=== PATIENT | male | born 1960 | race Hispanic/Latino ===

== ENCOUNTER 2022-02-15 21:15 | Emergency (ER) | payer SELFPAY ==
[~2022-02-15] VITALS: Ht 170.2 cm; Wt 81.0 kg
[2022-02-15] MEDS ORDERED: CYCLOBENZAPRINE10 MG PO (23:54)
--- NOTE | 2022-02-18 12:55 | EKG ---
[facility] [address] [place], [place] [address] Signed Normal sinus rhythm Normal ECG No previous ECGs available Confirmed by JACQUI HAMMOND MD ([id number]) on 02/18/2022 12:55:10 PM Electronically Signed By: JACQUI HAMMOND MD 02/18/22 1255 PATIENT NAME: NADIA PORTER Electrocardiogram DATE OF : 56 PHYSICIAN: JACQUI HAMMOND MD REPORT #: [id number] REPORT IS CONFIDENTIAL AND NOT TO BE RELEASED WITHOUT AUTHORIZATION
== END 2022-02-16 01:00 | disposition home or self-care (01) ==
LOC: ED 21:15
DX: R07.89 Other chest pain (principal); R22.40 Localized swelling, mass and lump, unspecified lower limb; E11.9 Type 2 diabetes mellitus without complications
CPT/HCPCS: 36415; 71045; 80053; 83690; 83735; 83880; 84484; 85025; 85379; 93005; 93010; 96374; 99285-25; J2270

== ENCOUNTER 2024-10-23 09:09 | Emergency (ER) | payer OTHER ==
[~2024-10-23] VITALS: Ht 170.2 cm; Wt 74.0 kg
[~2024-10-23 09:09] MED LIST: CYCLOBENZAPRINE10 MG PO
[2024-10-23] MEDS ORDERED: CIPROFLOXACIN500 MG PO (09:21)
[2024-10-23] MEDS ORDERED: LANTUS SOL100 UNIT/1 SUB-Q (09:21)
[2024-10-23] MEDS ORDERED: METFORMIN HCL1000 MG PO (09:21)
[2024-10-23] MEDS ORDERED: FREESTYLE LANC1 EACH MISC (09:21)
[2024-10-23] MEDS ORDERED: PEG3350510 GM PO (09:21)
[2024-10-23] MEDS ORDERED: HYDROmorphone HCL 1 MG/ML SYR IV PRN (09:30)
[2024-10-23] MEDS ORDERED: SODIUM CHLORIDE 0.9% 1,000 ML IV ONE (09:30)
[2024-10-23 09:40] LABS: BASOPHILS 0.5 % (0-2); EOSINOPHILS 2.7 % (0-6); HEMATOCRIT 45.3 % (35.0-50.0); HEMOGLOBIN 15.3 g/dL (12.0-18.0); LYMPHOCYTES 29.6 % (24-44); MCH 27.8 (27-36); MCHC 33.8 g/dl (30-36); MCV 82.3 fl (81-99); MONOCYTES 11.8 % (0-12); NEUTROPHILS 55.4 % (39-80); PLATELET COUNT 278 K/uL (140-440); RBC 5.51 M/ul (4.3-5.7); RDW 13.8 (10.5-15.0)
[2024-10-23 09:55] LABS: ALBUMIN 3.5 g/dL (3.4-5.0); ALBUMIN/GLOBULIN RATIO 1.13 (1.1-2.4); ANION GAP 13.6 (7-21); BILIRUBIN, TOTAL 0.4 mg/dL (0.2-1.0); BUN/CREATININE RATIO 12.65 (6.0-28.6); CALCIUM 8.6 mg/dL (8.5-10.1); CREATININE, SERUM 0.79 mg/dL (0.70-1.30); POTASSIUM 3.6 mmol/L (3.5-5.1); PROTEIN, TOTAL 6.6 g/dL (6.4-8.2)
[2024-10-23 10:39] LABS: BILIRUBIN, URINE NEGATIVE (negative); BLOOD/HGB, URINE MODERATE (Negative); KETONE, URINE NEGATIVE (Negative); LEUK ESTERASE, URINE NEGATIVE (negative); NITRITE, URINE NEGATIVE (negative)
[2024-10-23 10:45] LABS: EPITHELIAL CELLS, URINE SQUAMOUS 1+ /lpf (0-1+)
[2024-10-23 10:46] LABS: BACTERIA, URINE NONE SEEN /hpf (negative); CASTS, URINE NONE SEEN \\lpf; COLLECTION TYPE, URINE CLEAN CATCH; CRYSTALS, URINE NONE SEEN (0-1+); REFLEX CULTURE, URINE No (No)
[2024-10-23] MEDS ORDERED: SOD PHOSPHATE/SOD BIPHOSPHATE 132 ML BTL PR ONE (11:30)
[2024-10-23] MEDS ORDERED: MAGNESIUM CITRATE 300 ML BTL PO ONE (13:30)
[2024-10-23 13:42] VITALS: BP 136/78
== END 2024-10-23 13:42 | disposition home or self-care (01) ==
LOC: ED 09:09
PROVIDERS: Emergency Medicine
DX: K62.89 Other specified diseases of anus and rectum (principal); N32.89 Other specified disorders of bladder; K59.00 Constipation, unspecified; E11.9 Type 2 diabetes mellitus without complications; Z79.84 Long term (current) use of oral hypoglycemic drugs; Z79.899 Other long term (current) drug therapy
CPT/HCPCS: 36415; 74177; 80053; 81001; 83690; 85025; 96376; 99284-25; J1171; J7030; Q9967

== ENCOUNTER 2024-11-21 10:17 | Emergency (ER) | payer OTHER ==
[~2024-11-21] VITALS: Ht 170.2 cm; Wt 75.6 kg
[~2024-11-21 10:17] MED LIST changes: +CIPROFLOXACIN500 MG PO; +FREESTYLE LANC1 EACH MISC; +LANTUS SOL100 UNIT/1 SUB-Q; +METFORMIN HCL1000 MG PO; +PEG3350510 GM PO
--- OUTSIDE RECORDS SUMMARY | 2024-11-21 10:20 | XMS ---
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 PHONE: [phone] CROW [facility] - [facility] Current PHONE: Unknown [facility]: [facility] ([facility]) PHONE: [phone] Kristofer has no Care Guidelines for this patient. Eb VISIT COUNT (12 MO.) 5 [facility] 2 NICOLA Quiroz TOTAL 7 NOTE: Visits indicate total known visits. ED/UCC VISIT TRACKING (12 MO.) 11/21/2024 10:18 [facility] TYPE: Emergency COMPLAINT: - RECTAL PAIN 11/12/2024 09:20 [facility] TYPE: Emergency DIAGNOSES: - Other specified diseases of anus and rectum - Retention of urine, unspecified - Urinary tract infection, site not specified - Abdominal Pain - Back Pain 11/05/2024 06:02 [facility] TYPE: Emergency DIAGNOSES: - Constipation, unspecified - Generalized abdominal pain - Other specified noninfective gastroenteritis and colitis - Personal history of urinary (tract) infections - Retention of urine, unspecified - Unspecified abdominal pain - Constipation - Urinary Complaint 11/02/2024 13:40 [facility] TYPE: Emergency DIAGNOSES: - Urinary Complaint 10/26/2024 19:46 [facility] TYPE: Emergency DIAGNOSES: - Acute cystitis with hematuria - Adverse effect of other opioids, initial encounter - Drug induced constipation - Elevated blood-pressure reading, without diagnosis of hypertension - Opioid abuse, uncomplicated - Other specified disorders of bladder - Constipation 10/23/2024 09:09 [facility] [place] TYPE: Emergency COMPLAINT: - ABDOMINAL PAIN DIAGNOSES: - Constipation, unspecified - [facility] (current) use of oral hypoglycemic drugs - Lower abdominal pain, unspecified - Other superintendent marine [employer] (current) drug therapy - Other specified diseases of anus and rectum - Other specified disorders of bladder - Type 2 diabetes mellitus without complications 07/09/2024 10:16 [facility] TYPE: Emergency DIAGNOSES: - Hemorrhage of anus and rectum - Non-ST elevation (NSTEMI) myocardial infarction - Chest Pain - Chest pain,SOB, numb hands INPATIENT VISIT TRACKING (12 MO.) 07/09/2024 10:16 [facility] TYPE: Internal Medicine DIAGNOSES: - Hemorrhage of anus and rectum - Non-ST elevation (NSTEMI) myocardial infarction - Presence of aortocoronary bypass graft [email or web address]
[2024-11-21] MEDS ORDERED: ondansetron HCL 4 MG/2 ML VIAL IV PRN (10:45)
[2024-11-21] MEDS ORDERED: SODIUM CHLORIDE 0.9% 1,000 ML IV ONE (10:45)
[2024-11-21] MEDS ORDERED: HYDROmorphone HCL 1 MG/ML SYR IV ONE ×2 (10:45→13:30)
[2024-11-21 10:56] LABS: BASOPHILS 0.9 % (0-2); EOSINOPHILS 4.1 % (0-6); HEMATOCRIT 42.9 % (35.0-50.0); HEMOGLOBIN 14.5 g/dL (12.0-18.0); LYMPHOCYTES 26.3 % (24-44); MCH 27.6 (27-36); MCHC 33.8 g/dl (30-36); MCV 81.6 fl (81-99); MONOCYTES 12.7 % (0-12); PLATELET COUNT 269 K/uL (140-440); RBC 5.25 M/ul (4.3-5.7)
[2024-11-21 11:16] LABS: ALBUMIN 3.5 g/dL (3.4-5.0); ALBUMIN/GLOBULIN RATIO 1.21 (1.1-2.4); ANION GAP 10.6 (7-21); BILIRUBIN, TOTAL 0.4 mg/dL (0.2-1.0); BUN/CREATININE RATIO 9.63 (6.0-28.6); CALCIUM 8.4 mg/dL (8.5-10.1); CREATININE, SERUM 0.83 mg/dL (0.70-1.30); POTASSIUM 3.6 mmol/L (3.5-5.1); PROTEIN, TOTAL 6.4 g/dL (6.4-8.2)
[2024-11-21] MEDS ORDERED: ROWASA4 GM/60 ML PR (13:07)
[2024-11-21] MEDS ORDERED: HYDROCODON-ACE1 EA10 PO (13:20)
[2024-11-21 13:50] VITALS: BP 123/72
--- NOTE | 2024-11-21 17:50 | EKG ---
[facility] [address], [place] [address] Signed Normal sinus rhythm Normal ECG Confirmed by Samir White DO ([id number]) on 11/21/2024 5:50:08 PM Electronically Signed By: SAMIR WHITE DO 11/21/24 175 PATIENT NAME: CHARLOTTE NADIA FERRO Electrocardiogram DATE OF : 56 PHYSICIAN: SAMIR WHITE DO REPORT #: [id number] REPORT IS CONFIDENTIAL AND NOT TO BE RELEASED WITHOUT AUTHORIZATION
== END 2024-11-21 13:35 | disposition home or self-care (01) ==
LOC: ED 10:17
PROVIDERS: Emergency Medicine
DX: K62.7 Radiation proctitis (principal); C67.9 Malignant neoplasm of bladder, unspecified; E11.9 Type 2 diabetes mellitus without complications; Z95.1 Presence of aortocoronary bypass graft; Z96.0 Presence of urogenital implants; Z79.4 Long term (current) use of insulin; Z79.84 Long term (current) use of oral hypoglycemic drugs; Z79.899 Other long term (current) drug therapy
CPT/HCPCS: 36415; 74177; 80053; 83690; 85025; 93005; 93010; 96375; 96376; 99284-25; J1171; J2405; J7030; Q9967

== ENCOUNTER 2025-01-05 05:30 | Day surgery (SDC) | payer OTHER ==
[2024-12-29 13:46] VITALS: BP 124/86
--- NOTE | 2024-12-30 08:46 | NUR ---
PRE OP LAB, EKG AND XRAY REPORTS PRINTED FOR CHART. ABNORMAL UA RESULTS NOTED. RESULTS FAXED TO DR TIRADO OFFICE. CLINIC NOTES REVIEWED. PT WAS TO START CIPRO ON 12/20. TAJ HELM PHONED PT , SIMON TO ENSURE PRE OP INSTRUCTIONS WERE UNDERSTOOD AND ANSWER ANY QUESTIONS. ALSO ASKED IF PT HAD OBTAINED AND TAKEN PRESCRIBED ANTIBIOTIC. TOLD RN THAT HE HAD NOT. INSTRUCTED TO OBTAIN AND START ANTIBIOTICS PRESCRIBED TODAY. AGREED TO DO SO.
[~2025-01-05] VITALS: Ht 170.2 cm; Wt 68.0 kg
[2025-01-05] VITALS (11 sets, daily range): BP systolic 114–172; BP diastolic 64–87
[~2025-01-05 05:30] MED LIST changes: +COLACE100 MG PO; +HYDROCODON-ACE1 EA10 PO; +LACTATED RINGER'S 1,000 ML IV SCH; +OXYBUTYNIN CHLO10 MG PO; +ROWASA4 GM/60 ML PR; +SENNA LAXATIVE8.6 MG PO
[2025-01-05] MEDS ORDERED: GENTAMICIN PHARMACY TO DOSE IV ONE (06:15)
--- NOTE | 2025-01-05 06:16 | NUR ---
PT REPORTS STARTED RX FOR NITROFURANTOIN LAST NIGHT AFTER PICKING IT UP FROM PHARMACY. DR. TIRADO NOTIFIED OF DELAYED ABX START. THIS RN READ C&S RESULTS TO DR. TIRADO FROM UA SPECIMEN COLLECTED EARLIER THIS MONTH. VERBAL ORDER RECEIVED FROM DR. TIRADO FOR 1 X DOSE OF GENTAMICIN ON-CALL TO OR. PHARMACY TO DOSE PER PROTOCOL. ORDER ENTERED INTO [employer].
[2025-01-05] MEDS ORDERED: ROSUVASTATIN CA20 MG PO (06:34)
[2025-01-05] MEDS ORDERED: NITROFURANTOIN100 M1 PO (06:34)
[2025-01-05] MEDS ORDERED: IBLOOD GLUCOSE TEST STRIP 1 EA TEST VI PRN (07:00)
[2025-01-05] MEDS ORDERED: GENTAMICIN SULFATE IV SCH ×2 (07:00)
[2025-01-05] MEDS ORDERED: DEXTROSE 5% IV SCH (07:00)
[2025-01-05] MEDS ORDERED: LIDOCAINE HCL 1% 5 ML SDV INJ ONE (07:00)
[2025-01-05] MEDS ORDERED: mitoMYcin 40 MG/20 ML VIAL BLADIN SCH (07:00)
[2025-01-05] MEDS ORDERED: CEFAZOLIN SODIUM 2 GM/20 ML SYR IV SCH (07:00)
[2025-01-05] MEDS ORDERED: SODIUM CHLORIDE 0.9% IV SCH (07:00)
--- NOTE | 2025-01-05 07:10 | NUR ---
AUDIO ENTRY WRITER SERVICE USED TO COMMINCATE WITH PT DURING CHECK IN PROCESS/ASSESSMENT. #[id number]. PTS KAYLIN ZUNIGA ALSO PRESENT.
--- NOTE | 2025-01-05 07:25 | NUR ---
VERBAL ORDER RECEIVED FROM DR. TIRADO TO [facility]. ORDER ALREADY APPEARS DC[facility]D IN [facility]. MED RETURNED TO PHARMACY.
[2025-01-05] MEDS ORDERED: HYOSCYAMINE SULFATE 0.375 MG TAB.ER.12H PO PRN (07:30)
[2025-01-05] MEDS ORDERED: MORPHINE SULFATE 15 MG TABCR PO PRN (07:30)
[2025-01-05] MEDS ORDERED: OXYCODONE/APAP 5/325 TAB PO PRN ×2 (07:30→15:30)
[2025-01-05] MEDS ORDERED: HYDROmorphone HCL 1 MG/ML SYR IV PRN ×3 (07:30→15:30)
[2025-01-05] MEDS ORDERED: ondansetron HCL 4 MG/2 ML VIAL IV PRN ×3 (07:30→15:30)
[2025-01-05] MEDS ORDERED: LIDOCAINE HCL 2% 5 ML SDV ONE (07:32)
[2025-01-05] MEDS ORDERED: ondansetron HCL 4 MG/2 ML VIAL ONE (07:32)
[2025-01-05] MEDS ORDERED: DEXAMETHASONE SOD PHOS 4 MG/ML VIAL ONE (07:32)
[2025-01-05] MEDS ORDERED: propofoL 200 MG/20 ML VIAL ONE (07:32)
[2025-01-05] MEDS ORDERED: fentaNYL citrate 100 MCG/2 ML VIAL ONE ×2 (07:32→08:34)
[2025-01-05] MEDS ORDERED: LABETALOL HCL 20 MG/4 ML VIAL ONE (08:53)
[2025-01-05] MEDS ORDERED: iopamidoL 30 ML VIAL ONE (08:59)
[2025-01-05] MEDS ORDERED: KETOROLAC TROMETHAMINE 30 MG/ML VIAL ONE (09:17)
[2025-01-05] MEDS ORDERED: ROCURONIUM BROMIDE 50 MG/5 ML SYR ONE (09:21)
[2025-01-05] MEDS ORDERED: SUGAMMADEX SODIUM 200 MG/2 ML ML ONE (09:48)
[2025-01-05] MEDS ORDERED: SEVOFLURANE 250 ML BTL INH ONE (10:45)
--- NOTE | 2025-01-05 11:44 | NUR ---
01/05/25 1144 AnthonySilvia Michele 1019- PT PRESENTS TO PACU, SEMI PORTILLO POSITION, NON REACTIVE TO STIMULUS. OPA IN PLACE, CHIN LIFT NEEDED TO MAINTAIN AIRWAY, O2 AT 8L PER MASK, BREATHING EVEN AND NON LABORED. LR INFUSING TO LFA IV. ABD SOFT, NON DISTENDED. CHACON CATHETER IN PLACE, PLUGGED AT THIS TIME. ALL MONITORS IN PLACE. 1030- PT ROLLED TO RIGHT SIDE WITH ASSISTANCE OF PLANT AND INSTRUMENT ENGINEER. OPA REMAINS IN PLACE, CHIN LIFT NO LONGER NEEDED. LR TKO TO LFA IV. PT REMAINS NON REACTIVE, PILLOWS IN PLACE TO KEEP ON SIDE. 1034- PT RAISES EYEBROWS BUT KEEPS EYES CLOSED. OPA REMOVED, O2 REMAINS IN PLACE. STRAW HAT MACHINE OPERATOR COMPUTER TURNED ON AND CYMRO SERVICES REQUESTED. 1041- PT MOVED TO ROOM AIR, NO STRAW HAT MACHINE OPERATOR ON THE LINE YET AT THIS TIME. 1050- PT UNDERSTANDS TO ROLL TO LEFT SIDE, ASSISTED AT THIS TIME. CONTINUE TO MONITOR, PT REACHING FOR CATHETER AND UNDERSTANDS NOT TO PULL. AWAITING INTERPRETING SERVICES STILL AT THIS TIME. 1058- PT APPEARS MORE UNCOMFORTABLE, CYMRO SPEAKING RN REQUESTED TO COME SPEAK TO PT DUE TO STRAW HAT MACHINE OPERATOR SERVICES STILL NOT ON THE LINE. EXPLAINED CHACON CATHETER AND MYTOMYCIN IN BLADDER. PT DENIES PAIN OTHER THAN FEELING THE NEED TO VOID. EXPLAINED TIME LINE TO PT, DENIES NAUSEA. 1105- PT REPORTED HE NEEDED TO URINATE, AWARE OF TIMELINE AT THIS TIME. REPORT TO CAITIE VANG AT BEDSIDE, CARE OF PT TURNED OVER AT THIS TIME. 1110- RETURNED WITH STRAW HAT MACHINE OPERATOR COMPUTER AND PT WRITHING IN BED, CYMRO SPEAKING RN JOYA BROUGHT BACK TO ROOM. THIS RN TO OR TO DISCUSS WITH DR TIRADO, ORDERS TO GIVE MEDICATION FOR BLADDER SPASMS AND DRAIN CATHETER, RELAYED TO CAITIE VANG.
[2025-01-05] MEDS ORDERED: OXYCODONE HCL5 MG PO (12:14)
[2025-01-05] MEDS ORDERED: MEPERIDINE HCL 25 MG/1 ML VIAL IV PRN (12:45)
[2025-01-05] MEDS ORDERED: fentaNYL citrate 50 MCG/ML SDV IV PRN (12:45)
[2025-01-05] MEDS ORDERED: NALOXONE HCL 0.4 MG SYR IV PRN (12:45)
[2025-01-05] MEDS ORDERED: LIDOCAINE 2% VISCOUS 6 ML SYR ONE (12:56)
[2025-01-05] MEDS ORDERED: LIDOCAINE 2% VISCOUS 6 ML SYR TOP ONE (13:30)
[2025-01-05] MEDS ORDERED: TRANEXAMIC ACID IN NACL,ISO-OS 1,000 MG/100 ML PIGGYBACK IV ONE ×2 (13:30→16:15)
[2025-01-05] MEDS ORDERED: LACTATED RINGER'S 1,000 ML IV SCH (15:30)
[2025-01-05] MEDS ORDERED: diphenhydrAMINE HCL 25 MG CAP PO PRN (15:30)
[2025-01-05] MEDS ORDERED: IBLOOD GLUCOSE TEST STRIP 1 EA TEST XX PRN (15:45)
[2025-01-05] MEDS ORDERED: GLUCAGON,HUMAN RECOMBINANT 1 MG/ML VIAL SUB-Q PRN (15:45)
[2025-01-05] MEDS ORDERED: DEXTROSE 5% 1,000 ML IV PRN (15:45)
[2025-01-05] MEDS ORDERED: DEXTROSE 50% 50 ML SYR IV PRN ×2 (15:45)
[2025-01-05] MEDS ORDERED: OXYCODONE/APAP 5/325 TAB PO ONE (17:00)
[2025-01-05] MEDS ORDERED: Insulin Regular, Human 100 UNIT/ML ML SUB-Q SCH (17:00)
[2025-01-05] MEDS ORDERED: IBLOOD GLUCOSE TEST STRIP 1 EA TEST XX SCH (17:00)
[2025-01-05 18:21] LABS: BASOPHILS 0.1 % (0.2-1.2); EOSINOPHILS 0.1 % (0.8-7.0); HEMATOCRIT 38.6 % (40.1-51.0); HEMOGLOBIN 12.8 g/dL (13.7-17.5); MCHC 33.2 g/dL (32.3-36.5); MCV 87.3 fL (79.0-92.2); MONOCYTES 4.5 % (5.3-12.2); PLATELET COUNT 295 K/uL (163-337); RBC 4.42 M/uL (4.63-6.08)
--- NOTE | 2025-01-05 18:41 | NUR ---
CBI CHACON EMPTIED FOR 3,650ML OF RED TINGED FLUID. PATIENT RESTING IN BED WITH EYES CLOSED, RR EVEN AND UNLABORED. PATIENT HAS VISITOR ON COUCH IN ROOM.
--- NOTE | 2025-01-05 18:41 | NUR ---
HOSPITALIST UPDATED AFTER PRIMARY RN PHONE CONVERSATION WITH DR. SANCHEZ. TELEPHONE ORDER TO INPUT CBC RECHECK AT 0700. NO OTHER ORDERS FROM HOSPITALIST AT THIS TIME.
--- NOTE | 2025-01-05 18:42 | NUR ---
Pt arrived to room at 1730 hours. Verbal report received at bedside from TAJ Alatorre. 2 RN skin assessment done. CBI with clots, irrigated and flow resumed. Cath bag started at 0, 750 left in bags hanging. Pt is thai speaking, at bedside speaks South Sudanese. Pt denies pain at this time. Ector box provided. Pt and pt's oriented to call light and room, side rails up x4, call light in reach.
--- NOTE | 2025-01-05 18:43 | NUR ---
PC to Dr. Mendoza to advise her that CT results are available. VO received from her to stop CBI and flush catheter well to attempt to dislodge the clot viewed on CT, then resume CBI and do not attempt to wean until later tonight. She also gave a VO to make the pt NPO at midnight in the event she needs to take him back to surgery to cauterize. She also stated he can be OOB to chair only.
--- NOTE | 2025-01-05 19:05 | NUR ---
REPORT RECEIVED FROM AMILCAR VANG. pt RESTING IN THE BED. TULIO IN RM TO ASSIST WITH CHACON BAG. DUE TO pt BEING ON CHEMO. pt DENIES ANY OTHER NEEDS AT THIS TIME. CALL LIGHT WITHIN REACH.
--- NOTE | 2025-01-05 19:30 | NUR ---
When pt arrived to the floor, the cath bag was empty and there was approximately 750ml left between bags 5 and 6 of irrigant. Pt cath was flushed with 200ml NS. Cath bag emptied of 1800ml at 1800, and 2 full bags hung. Cath bag emptied around 1830 hours by TAJ Brown, of 3650ml. Bags number 7 and 8 empty and changed at 1900 hours, and cath bag emptied of 1850ml, bags number 9 and 10 running at this time. Cath flushed with 200ml NS, no clots noted, urine bright red. At 1930 hours, cath bag emptied of 3000ml.
--- NOTE | 2025-01-05 19:37 | NUR ---
REPORT OBTAINED FROM AMILCAR VANG/ UPDATES TO BE GIVEN TO PRIMARY NOC ATJ ATKINS. PT AWAKE, ON ROOM AIR, CARES EXPLAINED IN TOGOLESE BY THIS RN. STATED UNDERSTANDING. IVF INFUSING LA W/O PROBLEMS. CBI INFUSING. F/C DRAINAGE GOODWIN RED. NO C/O PAIN.
--- NOTE | 2025-01-05 19:48 | NUR ---
1105- PT ARRIVED TO ON RA, AAO PER PTS BASELINE. PT LAYING ON L SIDE. PT NOTED TO BE GRIMACING AND MOANING. REPORT RECEIVED FROM DIVE MASTER. VISUALIZED CHACON CATH INSERTION SITE W/DIVE MASTER. NOTED RED TINGED URINE LEAKING AROUND CATHETER ONTO BED. PT REPORTING 10/10 PAIN AND ROCKING AND THRASHING. VS TAKEN. IV SITE NOTED TO BE SL'D UPON ARRIVAL BACK TO . PT DENIES NAUSEA WHEN ASKED. 1110-PT ASSISTED IN ROTATING TO HIS STOMACH FOR FINAL ROTATION W/MITOMYCIN. PT TO REMAIN IN THIS POSITION FOR 20 MINS AND THEN BLADDER MAY BE DRAINED AT 1130. HOWEVER PT THRASHING ABOUT IN BED. ATTEMPTS TO CALM ARE INEFFECTIVE. RN DANIAL WENT AND REPORTED THE ABOVE TO DR. TIRADO AND WITH INSTRUCTIONS FOR THIS RN TO GO AHEAD AND DRAIN BLADDER NOW. ALSO INSTRUCTIONS TO GIVE MORPHINE AND HYCOSAMINE FOR PAIN SPASMS IF NEEDED. ORDERS ALREADY IN EMAR FOR THESE. 1115-CHACON DRAINAGE SYSTEM ATTACHED TO DRAIN MITOMYCIN PER POLICY. NOTED ONLY A FEW DROPS IN DRAINAGE TUBING. VERIFIED NOTHING KINKING CATHETER OR CHACON DRAINAGE TUBING. CHACON BAG IS TO GRAVITY. PT REPORTING 10/10 PAIN AND ROCKING, YELLING, AND MOANING. VISUALIZED CHACON CATH AND CAN SEE SHADOWING AREAS IN CATH THAT APPEAR LIKE BLOOD CLOTS CLOGGING CATH. 1119-CALLED INTO OR TO SPEAK WITH DR. TIRADO. DR. TIRADO ON ANOTHER CALL. INFORMED STAFF MEMBER ADRIANE OF ISSUES AND NEED TO SPEAK WITH DR. TIRADO. 1121-RECEIVED CALL BACK FROM DR. TIRADO WITH INSTRUCTIONS TO IRRIGATE BLADDER WITH NS. SUPPLIES COLLECTED. 1130-CHACON CATH IRRIGATED WITH 300 CC NS X 2. SEVERAL LARGE AND SMALL CLOTS DISLODGED AND DRAINED. APPROX 550ML OF SANGUINEOUS URINE/MITOMYCIN DRAINED INTO CHACON DRAINAGE BAG. DISPOSED OF MITOMYCIN/URINE IN DRAINAGE BAG PER POLICY. NEW CHACON DRAINAGE BAG ATTACHED AND DRAINING TO GRAVITY. CATH SECURE PLACED. PTS GOWN AND BED LINENS CHANGED. ADDITIONAL WARM BLANKET PROVIDED. RAMONA VANG ASSISTED THIS RN WITH LINEN CHANGE. 1150-PT REPORTING PAIN RESOLVED WITH RESOLUTION OF OBSTRUCTED CATH. PT RATES PAIN 0/10 AND CONT TO DENY N/V. PTS SON ARRIVED AND AT BEDSIDE WITH VERN. FAMILY UPDATED ON PT. PT PROVIDED WITH PUDDING AND ICE WATER. BED IN LOW POSITION, WHEELS LOCKED, BILAT RAILS IN PLACE FOR SAFETY, AND CALL LIGHT WITHIN PT REACH. ALL QUESTIONS ANSWERED. 1205-INTO ROOM FOR ROUTINE REASSESSMENT. PTS SON AND GRANDAUGHTER REMAIN AT BEDSIDE. PT CONT TO DENY PAIN OR NAUSEA. VS TAKEN. IV SITE ASSESSED AND REMAINS SL'D AT THIS TIME. CATH INSERTION SITE VISUALIZED AND NO LEAKING OR DRAINAGE NOTED AROUND CATHETER. PT ATE ALL OF HIS PUDDING AND DRANK HIS ICE WATER. ICE WATER REFILLED. FAMILY ASKING WHEN PT CAN GO HOME. EXPLAINED NEED TO MONITOR URINE OUTPUT AND BLEEDING TO ENSURE RESOLVED BEFORE GOING HOME. EXPLAINED DR. TIRADO WOULD ALSO LIKE TO CHECK ON PT AGAIN WELL. FAMILY AND PT VERBALIZED UNDERSTANDING WITH "OK" AND NODDING OF HEAD UP AND DOWN. 1210-INTO PTS ROOM FOR DC EDUCATION. PT PROVIDED HANDOUT ON SAFE HANDLING OF URINE S/P MITOMYCIN INSTILLATION. UNABLE TO LOCATE BURUNDIAN COPY, HOWEVER EDUCATIONAL HANDOUTS RELATING TO PROCEDURE, MITOMYCIN, URETERAL STENT INSERTION, CONSTIPATION, PAIN MEDS, GENERAL ANESTHESIA, AND CHACON CATH HOME CARE AND MANAGEMENT PROVIDED FOR PT IN BURUNDIAN. BURUNDIAN SPEAKING TAJ HINSON TRANSLATED ALL WRITTEN DC EDUCATION VERBALLY FOR PT AND HIS FAMILY AND ANSWERED ALL QUESTIONS. PT AND FAMILY REPORT UNDERSTANDING. DR. TIRADO OFFICE TO CONTACT PT TO SCHEDULED 1 WEEK VOIDING TRIAL/CATH REMOVAL APPT AND 2-3 WEEK BACK TO DS FOR STENT REMOVAL. PT AND FAMILY INFORMED OF THIS. 1245-CALL LIGHT ANSWERED AND PT NOTED TO BE MOANING AND THRASHING ABOUT IN BED. NOTED CHACON NO LONGER DRAINING AND APPEARS OCCLUDED AGAIN. ENSURED NO KINKING OF CATH OR DRAINAGE TUBING. CHACON BAG TO GRAVITY. WHAT APPEARS TO BE COAGULATED BLOOD NOTED WHERE END OF CATHETER CONNECTS TO CHACON DRAINAGE TUBING. 1250-DR. TIRADO HEARD OUTSIDE OF ROOM AND ENTERED TO SEE PT AND ISSUE MENTIONED ABOVE. VERBAL INSTRUCTIONS FROM DR. TIRADO TO REPLACE CURRENT CATH WITH 24 FR, 3 WAY CATH. BALLOON TO HAVE 20 CC OF NS INSTILLED. EXISTING CATH BALLOON DEFLATED WITH 10 ML OF FLUID REMOVED. CATH REMOVED AND APPROX 12 INCH LONG CLOT ALSO REMOVED WITH CATHETER. CLOT SLIGHTLY SMALLER IN DIAMETER THAN A PENCIL. VERBAL ORDER RECEIVED FOR UROJET PER RAMONA VANG. RAMONA RN REPORTS ENTERING ORDER INTO [employer] AND MEDICATION WAS PULLED FROM [employer] AND GIVEN TO DR. TIRADO. DR. TIRADO INSTRUCTED THIS RN TO ADMINISTER TOPICALLY THROUGH URETHRA FOR PAIN AND LUBRICATION PURPOSES AFTER IODINE SWABS X 3 USED TO CLEAN AROUND URETHRA. DR. TIRADO PLACED NEW 24 FR, 3 WAY CATH AND INSTILLED 20CC NS INTO BALLOON. NOTED BLOOD TINGED URINE W/SEVERAL CLOTS OF VARIOUS SIZES DRAINED WITH PLACEMENT OF CATH. NEW CBI CHACON DRAIANGE BAG ATTACHED. DR. TIRADO WITH IRRIGATION OF CATH AGAIN AFTER PLACEMENT. MORE SMALL CLOTS DRAINED. CHACON BAG TO GRAVITY AND CATH SECUREMENT DEVICE IN USE. 1310-DR. TIRADO WITH VERBAL ORDER TO GIVEN 1 GRAM TXA IV AND MAY START CBI IF BLEEDING PERSISTS AND CLOTS CONTINUE TO REOCCUR. TXA ORDER ENTERED INTO [employer]. 1315-ROUTINE REASSESSMENT COMPLETED. PT REPORTING PAIN IN BLADDER AND URETHRA AND RATES PAIN 5/10. PT ASKED IF HE WOULD LIEK PAIN MEDICATION AND REPLIED "YES" AFTER SON TRANSLATTED QUESTION FOR THIS RN. VS TAKEN. IV SITE ASSESSED. PTS GOWN AND BED LINENS CHANGED AGAIN. ADDITIONAL WARM BLANKET PROVIDED. FAMILY REMAINS AT BEDSIDE. BED IN LOW POSITION, BILAT RAILS IN PLACE. CALL LIGHT WITHIN PT REACH. 1327-PO PAIN MEDS GIVEN PER EMAR. ICE WATER REFILLED. 1340-IV FLUSHED W/10 ML NS. LR RECONNECTED AND TXA PIGGYBACK STARTED. 1345-PTS FAMILY LEFT TO TAKE HIS RX TO PHARMACY. 1350-CATHER AGAIN APPEARS TO NO LONGER BE DRAINING AND REQUIRED ADDITIONAL IRRIGATION WITH 60 ML NS. 2 CLOTS DISLODGED AND CATHETER RESUMED DRAINING GOODWIN COLORED URINE WITH GROSS HEMATURIA STILL PRESENT. CBI INITIATED. 1400-TXA INFUSION COMPLETED. LR INFUSING TKO. 1415-APPROX 2000ML OF GOODWIN KOOLA[place] COLORED URINE EMPTIED FROM CATH DRAINAGE BAG. SMALL CLOTS CAN BE SEEN IN DRAINED URINE. 1420-ROUTINE REASSESSMENT COMPLETED. PT DENIES PAIN WHEN ASKED IN BURUNDIAN WELL NAUSEA. CBI INFUSING WIDE OPEN WITH CONTINUED GOODWIN KO[place] COLORED URINE DRAINING TO GRAVITY. SOME BLOOD CAN BE VISUALIZED COAGULATING IN DRAINAGE TUBING. ATTEMPTS TO MILK AND MANIPULATE DRAIANGE TUBING HELPFUL IN DISLODGING COAGULATED BLOOD INTO DRAINAGE BAG. 1427-PHONED DR. TIRADO WITH UPDATE ON PT AND CBI INTIATED DISCUSSED EARLIER. QUESTIONED NEED TO ADMIT PT FOR CBI OVERNIGHT D/T CONT BLEEDING AND CLOTING EVEN WITH CBI AT WIDE OPEN RATE REQUIRING MANUAL IRRIGATION OF CATH WITH NS AND SYRINGE. DR. TIRADO REPORTS SHE WILL CONTACT HOSPITALIST, DR WHITE, TO DISCUSS AND WILL CALL THIS RN BACK WITH FURTHER INSTRUCTIONS/ORDERS. WAREHOUSE LOGISTICS COORDINATOR UPDATED WELL NURSING TILE SETTER. 1435-APPROX 2600ML OF CHEERY KO[place] COLORED URINE WITH CLOTS EMPTIED FROM CHACON DRAINAGE BAG. ATTEMPTS TO DECREASE FLOW OF CBI MET WITH INCREASED DARKNESS OF RED URINE AND WHAT APPEARS LIKE INCREASED VISCOSITY OF URINE. CBI KEPT WIDE OPEN. 1500-FIRST 2-3000ML NS CBI BAGS COMPLETED AND 3RD AND 4TH BAGS HUNG. 1510-APPROX 1550 ML OF [place] COLORED URINE DRAINED FROM CHACON DRAINAGE BAG. CLOTS VISUALIZED IN DRAIANGE BAG. 1515- ROUTINE REASSESSMENT COMPLETED. VS TAKEN. IV SITE SL'D, LR BAG COMPLETED. PT DENIES PAIN OR NAUSEA WHEN ASKED. NOTED BLOOD APPEARS TO BE COAGULTING IN DRAINAGE TUBING. ABLE TO MANIPULATE TUBING MANUALLY AND COAGULATED BLOOD DISLODGED FROM DRAINAGE TUBING STEWARD AND INTO DRAINAGE BAG. ATTEMPTS TO TITRATE FLOW OF CBI DOWN UNSUCCESSFUL. CLOTS FORM AND URINE GETS DARKER RED SHADE. CBI REMAIN WIDE OPEN WITH GOODWIN KOOLA[place] COLORED URINE DRAINING TO GRAVITY. 1545-APPROX 3100ML OF CHEERY KO[place] COLORED URINE WITH VISIBLE CLOTS DRAINED FROM CHACON BAG. NOTED SLOWED RATE OF CATHETER DRAINING. CLOT CAN BE VISUALIZED IN CHACON CATH TUBING. CBI DISCONNECTED AND CATH IRRIGATED WITH 60 ML NS. CLOT DISLODGED APPROX THE SIZE OF BOUNCY BALL. CBI RESUMED AND CHACON NOTED TO BE DRAINING ADAQUATE AMTS OF CHEERY KOOLAID COLORED URINE AGAIN. 1603-DR. TIRADO SPOKEN WITH VIA PHONE AND UPDATED ON THE ABOVE MENTIONED SINCE LAST SPEAK WITH HER. SHE REPORTS TALKING WITH DR. WHITE AND HAS DECIDED ON ADMITTING PT OVERNIGHT EXTENDED RECOVERY. SHE REPORTS SHE WILL PLACE ALL ORDERS IN [facility] R/T ADMISSION WELL MEDS/LABS TO BE GIVEN/COMPLETED WHIEL ON MED-SURG FLOOR. DR. TIRADO WITH VERBAL ORDERS TO GIVE 2ND DOSE OF 1 GRAM TXA D/T CONTINUED BLEEDING. DR. TIRADO WITH REQUEST TO HAVE THIS COMPLETED BEFORE PT TRANSFERRED TO MED SURG UNIT. [facility] TAJ HINSON INFORMED PT IN BURUNDIAN. PT AGREEABLE. 1615-ROUTINE REASSESSMENT COMPLETED. PT NOTED TO BE DOZING ON AND OFF. VS TAKEN. IV SITE ASSESSED. CHACON PATENT AND DRAINING TO GRAVITY WITH CBI RUNNING WIDE OPEN. URINE REMAINS GOODWIN KOOLAID COLORED AND WITH VISIBLE CLOTS PRESENT. PT DENIES PAIN AND NAUSEA WHEN ASKED. 1620-CHACON BAG DRAINED OF APPROX 2900 ML OF GOODWIN KOOLAID COLORED URINE. 3RD AND 4TH-3000ML NS CBI BAGS COMPLETED AND 5TH AND 6TH BAG HUNG. 1630-IV FLUSHED WITH 10 ML NS AND NEW BAG OF LR STARTED PER ORDERS. CHACON DRAINED OF APPROX 925 ML OF URINE. COLOR UNCHANGED. CLOTS CAN STILL BE VISUALIZED IN DRAIANGE BAG AND TUBING. REMAINS PATENT AND DRAINING TO GRAVITY AT THIS TIME WITH CBI IN PLACE, WIDE OPEN. 1638-TXA STARTED PER EMAR. 1645-CBG CHECKED AND 155. ADDITIONAL 425 ML OF GOODWIN KOOLA[place] COLORED URINE DRAINED FROM CHACON BAG. PT REPORTING SUDDEN RIGHT SIDED PAIN AND RATES PAIN 8/10. DR. TIRADO NOTIFIED VIA PHONE AND WITH VERBAL ORDERS TO GIVE 2 TABS OF PERCOCET INSTEAD OF ORDERED 1 TAB. ONE TIME ORDER ENTERED INTO [employer]. ALSO RECEIVED VERBAL ORDER FOR STAT URO-ABD CT WITHOUT CONTRAST. ORDER ENTERED INTO [employer]. ADDITIONAL 400ML OF URINE EMPTIED FROM CHACON DRAIANGE BAG. NO CHANGES NOTED IN URINE CHARACTERISTICS FROM PREVIOUSLY DESCRIBED. 1655-APPROX 950ML OF URINE DRAINED FROM CHACON BAG. NO CAHNGE IN URINE CHARACTERISTICS NOTED FROM PREVIOUSLY DESCRIBED. CBI CONTINUES AT WIDE OPEN RATE. NOTED DECREASED OUTPUT FLOW. CATH PATENCY APPEARS COMPROMISED AND CATHETER MANUALLY IRRIGATED WITH 120 ML NS. MED TO LARGE SIZED CLOTS DISLODGED AND DRAINED. CBI RESUMED, WIDE OPEN. 1658-2ND DOSE OF TXA COMPLETED. LR INFUSING PER ORDERS. 1700-PTS ARRIVED. DOES NOT SPEAK BURUNDIAN AND VIDEO CALLED HER DAUGHTER TO TRANSLATE. UPDATED ON PTS CONDITION AND NEED TO ADMIT OVERNIGHT FOR CBI. AGREEABLE. 1703-PO PAIN MEDS GIVEN PER EMAR. 1710-CT ARRIVED. CHACON PATENCY OCCLUDED AGAIN. CATH IRRIGATED WITH 60 ML AND CLOT DISLODGED. CHACON RESUMED DRAINING GOODWIN KOOLA[place] COLORED URINE WITH SMALL VISIBLE CLOTS SEEN. CBI INFUSING. 1715-CHACON BAG DRAINED OF APPROX 1550ML OF GOODWIN KO[place] COLORED URINE/IRRIGATION SOLUTION WITH SMALL VISIBLE CLOTS IN DRAINAGE TUBING AND BAG. 1720-PT TAKEN TO CT, ACCOMPANIED BY THIS RN AND 2 OTHERS FOR MANAGEMENT OF IV POLES, CBI, AND INTERPRETING FOR [employer]. JOYA RN PRESENT TO INTERPRET FOR PT WITH [employer]. CBI REQUIRED TO BE STOPPED AND TEMPORARILY DISCONNECTED TO ALLOW FOR CT COMPLETION. CBI RECONNECTED AFTER COMPLETION. NOTED SLOWED PATENCY. DURING TRANSFER TO MED SURG ROOM 109 VIA STRETCHER. 1730-PT TRANSFERRED TO MED SURG ROOM 109 VIA STRETCHER. REPORT GIVEN AT BEDSIDE TO TAJ GARCIA. CATH DRAINED OF APPROX 1150ML GOODWIN KOOLA[place] COLORED URINE WITH VISIBLE CLOTS. ASSISTED NUTRITION COORDINATOR WITH IRRIGATION OF CATH. CLOTS DISLODGE AND CHACON RESUMED DRAINING ADAQUATELY. IN ROOM UPON PTS ARRIVAL. ALL PERSONAL BELONINGS ALSO TAKEN TO ROOM WITH . ASSISTED MED SURG STAFF IN TRASNFERRING PT FROM STRETCHER TO BED. SCD'S PLACED. ASSISTED WITH HOOKING UP 7TH AND 8TH CBI BAGS AFTER REMAINING 750 ML INFUSED. URINE PRECAUTIONS DISCUSSED WITH TAJ GARCIA AND PROVIDED HER WITH POLICY FOR SAFE HANDLING/DISPOSAL R/T MITOMYCIN INSTILLATION. ALL QUESTIONS ANSWERED. BED IN LOW POSITION. WHEELS LOCKED.
--- NOTE | 2025-01-05 20:21 | NUR ---
PC to Dr. Mendoza to ask how she would like I's and O's documented. She advised it would be acceptable to document Intake and Output every 4 hours in the chart, rather than strict I&O on the CBI flow sheet. She also advised to keep CBI "wide open" and reassess the color of the urine in the tubing, if it remains light pink for an hour or more, slow the rate of irrigation down and reassess throughout the night to maintain clear to light pink. Irrigate when clots are noticed. Updated charge rn and RN Teresa Rogers
--- NOTE | 2025-01-05 20:30 | NUR ---
ASSESSMENT AND VITAL SIGNS DONE. pt C/O 02/16 PAIN. PRN AND SCHEDULED MEDS ADMINISTERED. CATH CARE DONE. URINE IN TUBE IS PINK IN COLOR. CBI STILL RUNNING. pt DENIES ANY OTHER NEEDS AT THIS TIME. CALL LIGHT WITHIN REACH. IV ASSESSED WNL. CPOX ON.
--- NOTE | 2025-01-05 20:35 | NUR ---
PRIMARY RN Adela IN ROOM TO ASSESS PT. PT C/O PAIN. 02/16 BLADDER AREA, MEDICARTED WITH NORCO, RECEIVED 3 UNITS SSI. LIGTHER ED COLORED DRAINAGE THROUGH [address] WAY F/C NOTED. CBI INFUSING, TOLERATING WELL. TURNS AND REPOSITIONS SELF IN BED, SCDS AND CPOX ON. PT ON ROOM AIR. ALL CARES EXPLAINED IN [place], COOPERATIVE, STATED UNDERSTANDING.
[2025-01-05] MEDS ORDERED: oxyBUTYnin chloride 5 MG TAB PO SCH (21:00)
[2025-01-05] MEDS ORDERED: DOCUSATE SODIUM 100 MG CAP PO SCH (21:00)
--- NOTE | 2025-01-05 23:00 | NUR ---
pt RESTING IN THE BED. URINE IS RED IN THE TUBE RN TULIO IN RM TO MONITOR OUTPUT. CBI STILL RUNNING. pt DENIES ANY OTHER NEEDS AT THIS TIME. CALL LIGHT WITHIN REACH.
[2025-01-06] VITALS (9 sets, daily range): BP systolic 120–141; BP diastolic 58–79
--- NOTE | 2025-01-06 00:27 | NUR ---
EYES CLOSED, TURNS AND REPOSITIONS SELF IN BED, CPOX POST OP AT BEDSIDE. NO S/SX PAIN OR RESP DISTRESS. IVF INFUSING, CBI INFUSING, F/C DRAINAGE LEARNING STRATEGIST RED-PINK COLORED, NO CLOTS NOTED. SCDS IN PLACE. CONTINUES ON ANTINEOPLASTIC DRUG ISOLATION PRECAUTIONS
--- NOTE | 2025-01-06 01:30 | NUR ---
CALLED INTO RM BY TAJ ANTUNEZ. TAJ ANTUNEZ STATES THAT pt WAS COMPLAINING OF PRESSURE IN HIS BLADDER SO CATHETER WAS FLUSHED WITH 60mL OF NS AND ASPIRATED BACK WITH 40mL WITH A CLOT THE SIZE OF A QUARTER THAT CAME OUT WITH IT. pt C/O 05/19 PAIN pt DENIES ANY OTHER NEEDS AT THIS TIME. CALL LIGHT WITHIN REACH.
--- NOTE | 2025-01-06 02:45 | NUR ---
in rm to check on PT. nolasco emptied. cbi still running. urine is light pink in the tube. PT denies any other needs at this time. call light within reach.
--- NOTE | 2025-01-06 03:22 | NUR ---
ON ROOM AIR, IVD, SCDS BEDSIDE CPOX IN PLACE. NO C/O PAIN OR DISTRESS. CBI INFUSING 3 WAY CATH DRAINING RED-PINK WITH OCASSIONA SMALL BLOOD CLOTS. TOLERATING NPO. ON ISOLATION PRECAUTIONS. COOP. ALL CARES EXPLAINED IN [place] BY THIS RN
--- NOTE | 2025-01-06 05:26 | NUR ---
PT C/O PENILE FISCOMOFRT. IRRIGATED VIA CATHERER, SMALL BLOOD CLOT ASPIRATED. STATED COMFORT AFTERWARDS. [id number] COLORED DRAINAGE NOTED. DENIES NEED FOR PAIN MEDS AT THIS TIME. CATH CAND PENILE CARE DONE. TOLERATED WELL, NPO. ALL CARES EXPLAINED IN KOSOVAN
--- NOTE | 2025-01-06 06:47 | NUR ---
PT C/O RECTAL/COLON AREA PAIN, MEDICATED WITH NORCO BY PRIMARY RN. NO PENILE DRAINAGE. F/C DRAINING LIGHT-TO YELLOWISH COLORED DRAINAGE FOR OVER ONE HOR. CBI RATE SLOWED DOWN. PRIMARY RN TO CALL DR SERRATO FOR FURTHER ORDERS. PT ON ROOM AIR, POST OP CPOX ON AT BEDSIDE. IVF INFUSING W/O PROBLEMS, SCDS IN PLACE, TOLERATING NPOO STATUS. TURNS AND REPOSITIONS SELF IN BED. ALL CARES EXPLAINED IN SPANBISH BY THIS RN, STATED UNDERSTANDING
--- NOTE | 2025-01-06 07:00 | NUR ---
REPORT RECEIVED FROM ABSTRACTOR RN MILLY. PATIENT IS LYING IN BED WITH EYES CLOSED AND RESPIRATIONS ARE EVEN AND UNLABORED. TULIO, RN SHOWED THIS RN THE CBI AND HOW WE ARE KEEPING TRACK OF INTAKE AND OUTPUT. PATIENT IS ON ROOM AIR WITH THE CPOX AT BEDSIDE. CALL LIGHT AND PERSONAL BELONGINGS ARE WITHIN REACH.
[2025-01-06 07:08] LABS: BASOPHILS 0.2 % (0.2-1.2); EOSINOPHILS 0.7 % (0.8-7.0); HEMOGLOBIN 11.2 g/dL (13.7-17.5); LYMPHOCYTES 18.1 % (21.8-53.1); MCH 29.6 PG (25.7-32.2); MCHC 33.9 g/dL (32.3-36.5); MCV 87.1 fL (79.0-92.2); MONOCYTES 11.5 % (5.3-12.2); NEUTROPHILS 69.2 % (34.0-67.9); PLATELET COUNT 262 K/uL (163-337); RBC 3.79 M/uL (4.63-6.08)
--- NOTE | 2025-01-06 07:20 | NUR ---
UR CLINICAL REVIEW: [facility] [place] REVIEW MEETS OBS FOR TURBT WITH BLADDER MASS ODS [facility] EXTENDED STAY 01/05/25 @ 1536 ORDER MATCHES REG NO AUTH REQUIRED PER MODA GUIDELINES FOR EXTENDED STAY RECOVERY DISCHARGE HOME TODAY
--- NOTE | 2025-01-06 08:05 | NUR ---
PATIENT IS LYING IN BED WITH EYES OPEN AND RESPIRATIONS ARE EVEN AND UNLABORED. INFORMATION SECURITY SPECIALIST ALEXANDER ([id number]) USED THROUGHOUT THE PATIENT INTERACTION. FULL ASSESSMENT COMPLETE AND DOCUMENTED IN THE CHART. PATIENT IS ALERT AND ORIENTED TIMES FOUR. PATIENT RATED PAIN A 6/10 IN THE LOWER ABDOMEN/BLADDER. PATIENT IS REQUESTING SOMETHING FOR PAIN AT THIS TIME. PATIENT REMAINS NPO. BOWEL TONES ARE ACTIVE IN ALL FOUR QUADRANTS. PATIENT WITH NO COMPLAINTS OF NAUSEA. IV SITE FLUSHED WITH 10 ML NORMAL SALINE. IV DRESSING IS CLEAN, DRY, AND INTACT. LR IS INFUSING AT 75 ML/HR. PATIENT IS ON ROOM AIR WITH THE CPOX AT BEDSIDE. LUNG SOUNDS ARE CLEAR THROUGHOUT ON AUSCULTATION. PATIENT WITH NO COMPLAINTS OF SOB. HEART TONES WITH NORMNAL S1 AND S2 ON AUSCULTATION. RADIAL AND PEDAL PULSES ARE STRONG BILATERALLY. NO EDEMA NOTED. SCD'S IN PLACE. SENSATION INTACT WITH NO COMPLAINTS OF NUMBNESS OR TINGLING. CAPILLARY REFILL IN THE UPPER AND LOWER EXTREMITIES IS LESS THAN 3 SECONDS BILATERALLY. PATIENT REMAINS ON THE CBI AND PALE PINK FLUID NOTED IN THE CATHETER BAG. TAJ FITZGERALD IS EMPTYING THE CATHETER NEEDED. APTIENT STATED NO FURTHER NEEDS AT THIS TIME. THIS RN REMAINS AT BEDSIDE.
--- NOTE | 2025-01-06 08:15 | NUR ---
PRN DILAUDID ADMINISTERED PER THE EMAR. REMAINDER OF MEDICATIONS HELD AT THIS TIME DUE TO BLOOD SUGAR WITHIN RANGE AND BEING NPO AND UNABLE TO TAKE PO MEDICATIONS. NEW BAG OF CBI STARTED. THIS RN REMAINS AT BEDSIDE.
[2025-01-06] MEDS ORDERED: MESALAMINE4 GM/60 ML PR (08:19)
--- NOTE | 2025-01-06 08:50 | NUR ---
TAJ FITZGERALD EMPTIED THE CATHETER OF 2600 ML OF PALE PINK FLUID AT THIS TIME. TWO IRRIGATION BAGS IN PLACE FOR CBI.
[2025-01-06] MEDS ORDERED: DEXTROSE 5% IV SCH (09:00)
[2025-01-06] MEDS ORDERED: GENTAMICIN SULFATE IV SCH (09:00)
--- NOTE | 2025-01-06 09:09 | NUR ---
PATIENT IS LYING IN BED ON HIS LEFT SIDE WITH EYES CLOSED AND RESPIRATIONS ARE EVEN AND UNLABORED. PATIENT REMAINS ON ROOM AIR WITH THE CPOX AT BEDSIDE. THIS RN REMAINS AT BEDSIDE.
--- NOTE | 2025-01-06 10:00 | NUR ---
Patient sleeping. Not awakened.
--- NOTE | 2025-01-06 10:08 | NUR ---
PATIENT IS LYING IN BED WITH EYES OPEN AND RESPIRATIONS ARE EVEN AND UNLABORED. CBI CONTINUES. FLUID IN THE CATHETER WITH LIGHT PINK IN THE BAG. PATIENT EXPRESSED NO NEEDS AT THIS TIME. CALL LIGHT AND PERSONAL BELONGINGS ARE WITHIN REACH. CPOX AT BEDSIDE.
--- NOTE | 2025-01-06 10:40 | NUR ---
TAJ FITZGERALD RMPTIED THE CATHETER BAG AT THIS TIME. RN STATED THE FLUID REMAIN LIGHT PINK IN COLOR WITH A FEW STRING CLOTS. PATIENT REMAINS LYING IN BED WITH EYES OPEN AND RESPIRATIONS ARE EVEN AND UNLABORED. PATIENT IS ON ROOM AIR WITH THE CPOX AT BEDSIDE. CALL LIGHT AND PERSONAL BELONGINGS ARE WITHIN REACH.
--- NOTE | 2025-01-06 11:16 | NUR ---
TAJ FITZGERALD IRRIGATED BLADDER WITH 60 ML AND NO CLOTS NOTED. RN EMPTIED CATHETER OF 2700 ML OF LIGHT PINK FLUID IN THE BAG. PATIENT RATED PAIN 8/10 IN THE LOWER ABDOMEN/BLADDER. PRN DILAUDID ADMINISTERED AT THIS TIME. TAJ FITZGERALD PROVIDED PATIENT A WARM BLANKET. PATIENT REMAINS ON ROOM AIR WITH THE CPOX AT BEDSIDE. PATIENT STATED NO FURTHER NEEDS AT THIS TIME. CALL LIGHT AND PERSONAL BELONGINGS ARE WITHIN REACH.
--- NOTE | 2025-01-06 11:19 | NUR ---
DR. TIRADO STATED TO STOP THE CBI AT THIS TIME AND TO MONITOR FOR AN HOUR. MD STATED THAT THE PATIENT CAN BE DISCHARGED AFTER AN HOUR IF THE FLUID IN THE CATHETER REMAINS A LIGHT PINK COLOR WITH NO CLOTS. CBI STOPPED AT THIS TIME. MD TO BE CALLED PRIOR TO DISCHARGING PATIENT. CALL ENDED WITH NO FURTHER ORDERS.
--- NOTE | 2025-01-06 12:00 | NUR ---
REPORT RECEIVED FROM HIRA VANG. PT RESTING IN BED WITH EYES CLOSED. CHACON DRAINING LIGHT PINK TINGED URINE. CALL LIGHT WITHIN REACH.
--- NOTE | 2025-01-06 12:44 | NUR ---
DR TIRADO CALLED AND UPDATED ON PT'S URINE OUTPUT. PT HAVING LIGHT PINK URINE WITHOUT CLOTS. ORDERS TO DC PT IF PT'S URINE DOES NOT CHANGE AFTER PT EATS LUNCH. FAMILY IN ROOM AND CALL LIGHT WITHIN REACH. SENIOR PRODUCT DEVELOPMENT MANAGER IPAD USED TO DISCUSS POC WITH PT AND ALLOW PT TO ASK QUESTIONS. PT STATES PAIN IS TOLERABLE AT THIS TIME.
[2025-01-06] MEDS ORDERED: METHOCARBAMOL750 MG PO (13:07)
--- NOTE | 2025-01-06 13:45 | NUR ---
MED REC COMPLETE
--- NOTE | 2025-01-06 14:31 | NUR ---
CALLED AND INFORMED PT URINE OUTPUT WAS MORE RED OUTPUT, IRRIGATED THIS AFTERNOON AND NOW IS A LIGHT PINK COLOR. PT REALLY WANTS TO DISCHARGE HOME. REVIEWED INFORMATION WITH DR. TIRADO ON THE PHONE, SHE IS OKAY WITH PT LEAVING. WILL EDUCATE PATIENT ON DISCHARGE TO INCREASE FLUID/WATER INTAKE, DECREASE ACTIVITY AND NOT STRAINING (PUSHING/PULLING/GRUNTING), IF NO URINE OUTPUT, WILL WANT TO RETURN TO EMERGENCY ROOM FOR FURTHER EVALUATION. OFFICE WILL CALL TO FOLLOW-UP WITH PATIENT ON THURSDAY. PRIMARY RN ROMAN INFORMED AND SHE WILL WORK ON DISCHARGING PATIENT.
--- NOTE | 2025-01-06 15:20 | NUR ---
PT GIVEN DISCHARGE INSTRUCTIONS VIA IPAD CHEMICAL DETECTION EXPERT (EROS) SERVICE. PT INSTRUCTED ON CATHETER CARE (PT STATED HE HAS HAD A CATHETER RECENTLY AND IS AWARE OF HOW TO CARE FOR IT). INSTRUCTED PT TO CLEAN AROUND INSERTION SITE DAILY, HOW TO EMPTY - DIRECTELY INTO TOILET AND FLUSH TWICE ALONG WITH OTHER CHEMO MEDICATION CONSIDERATIONS (MEDICATION PRECAUTION INFORMATION SHEET GIVEN), AND TO GO TO ER IF CATHETER DRAINAGE IS BLOODY OR IF THERE IS NO DRAINAGE. ALL QUESTIONS ANSWERED. PT STATED UNDERSTANDING. PT'S URINE COLOR IS LIGHT PINK WITH NO CLOTS PRESENT.
[2025-01-07] MEDS ORDERED: HYDROCODON-ACE1 EA10 PO (01:45)
[2025-01-07] MEDS ORDERED: FLOMAX0.4 MG PO (01:45)
--- NOTE | 2025-01-16 16:21 | PATH ---
[facility] [address] [place], [place] [address] Signed SPECIMEN(S): A BLADDER MASS SPECIMEN(S): B RIGHT DISTAL URETER MASS SPECIMEN(S): C BULLOUS BLADDER EDEMA SPECIMEN SOURCE: A. BLADDER MASS B. RIGHT DISTAL URETER MASS C. BULLOUS BLADDER EDEMA CLINICAL HISTORY: Bladder mass, TURBT FINAL PATHOLOGIC DIAGNOSIS: A. Mass, bladder, transurethral resection: - High-grade, invasive, papillary urothelial carcinoma. - See synoptic. B. Mass, right distal ureter, biopsy: - Segment of ureter with invasive urothelial carcinoma present in the surrounding fibromuscular tissue with chronic inflammatory cells and histiocytes. C. Bullous bladder edema: - Fibromuscular tissue with edema, chronic inflammation with invasive urothelial carcinoma cells. URINARY BLADDER: Biopsy and Transurethral Resection of Bladder Tumor (TURBT) Applies To: A SPECIMEN Procedure: Transurethral resection of bladder (TURBT) TUMOR Tumor Site: Not specified Histologic Type: Urothelial carcinoma, invasive (conventional) Histologic Grade: High-grade Tumor Extent: Invades lamina propria (subepithelial connective tissue) Lymphatic and / or Vascular Invasion: Not identified Tumor Configuration: Papillary Muscularis Propria (detrusor muscle): Present in specimen COMMENT: B, C. Immunohistochemical stains confirm the presence of invasive urothelial carcinoma: POSITIVE: GATA3. NEGATIVE (in the cells of interest): CD68, CD45 (LCA) PATIENT NAME: NADIA SHIPLEY PATHOLOGY DATE OF : 56 REPORT #: [id number] PHYSICIAN: ENRIQUE PATHOLOGY PCP: CHESTER PRATER DO REPORT IS CONFIDENTIAL AND NOT TO BE RELEASED WITHOUT AUTHORIZATION [facility] [address] [place], [place] [address] Signed As part of the Yield Improvement Engineer Program, this case was reviewed by another member of [facility] (IRAJ). TWK MICROSCOPIC EXAMINATION: Histologic sections of all submitted blocks are examined by light microscopy. These findings, together with the gross examination, support the pathologic diagnosis. GROSS DESCRIPTION: A. The specimen, labeled and designated "Zimmer Brandon, bladder mass," is received in formalin and consists of multiple fragments of red-brown soft tissue (2.3 x 2.0 x 0.4 cm in aggregate). The specimen is submitted entirely in cassette (A1). B. The specimen, labeled and designated "Zimmer Brandon, right distal ureter mass," is received in formalin and consists of multiple fragments of foreman-brown soft tissue (1.8 x 0.7 x 0.3 cm in aggregate). The specimen is submitted in cassette (B1). C. The specimen, labeled and designated "Zimmer Brandon, bullous bladder edema," is received in formalin and consists of multiple fragments of foreman-brown soft tissue (1.6 x 0.8 x 0.4 cm in aggregate). The specimen is submitted entirely in cassette (C1). VB (under the direct supervision of a pathologist) The Gross Description was prepared using a voice recognition system. The report was reviewed for accuracy; however, sound-alike word errors, addition and/or deletions may occur. If there is any question about this report, please contact Client Services. ADDITIONAL NOTES: Immunohistochemical and/or in situ hybridization studies if performed in this case included appropriate positive controls that reacted as expected. This test was developed and its performance characteristics determined by [facility]. It has not been cleared or approved by the U.S. Food and Drug Administration. The FDA has determined that such clearance or approval is not necessary. This test is used for clinical purposes. It should not be regarded as investigational or for research. [facility] is certified under the Clinical Laboratory Improvement Amendments of 1988 (CLIA) as qualified to perform high complexity clinical laboratory testing. PATIENT NAME: NADIA SHIPLEY PATHOLOGY DATE OF : 56 REPORT #: [id number] PHYSICIAN: ENRIQUE LAM PCP: CHESTER PRATER DO REPORT IS CONFIDENTIAL AND NOT TO BE RELEASED WITHOUT AUTHORIZATION [facility] [address] [place], [place] [address] Signed PERFORMING LABORATORY: Technical component was performed by [facility], [address] [place] [id number] (CLIA# [id number]). Professional interpretation was performed by [facility], [address] [place] [place] [address] (CLIA#:[id number]). Diagnostician: Jonah Pena MD Pathologist Electronically Signed 01/16/2025 Copies: ~ PATIENT NAME: NADIA SHIPLEY PATHOLOGY DATE OF : 56 REPORT #: [id number] PHYSICIAN: ENRIQUE PATHOLOGY PCP: CHESTER PRATER DO REPORT IS CONFIDENTIAL AND NOT TO BE RELEASED WITHOUT AUTHORIZATION
== END 2025-01-06 15:55 | disposition home or self-care (01) ==
LOC: DS 05:30 → OPS 05:30 → DS 07:30 → OPS 07:30 → MS 17:30 → OPS 01-06 15:55
PROVIDERS: Student in an Organized Health Care Education/Training Program; ATTEND Urology
PROC: 0TB68ZX Excision of Right Ureter, Via Natural or Artificial Opening Endoscopic, Diagnostic (ICD-10-PCS; 2025-01-05)
PROC: 0T9680Z Drainage of Right Ureter with Drainage Device, Via Natural or Artificial Opening Endoscopic (ICD-10-PCS; 2025-01-05)
PROC: 3E0K805 Introduction of Other Antineoplastic into Genitourinary Tract, Via Natural or Artificial Opening Endoscopic (ICD-10-PCS; 2025-01-05)
PROC: 0TBB8ZX Excision of Bladder, Via Natural or Artificial Opening Endoscopic, Diagnostic (ICD-10-PCS; principal; 2025-01-05 07:30)
DX: C67.2 Malignant neoplasm of lateral wall of bladder (principal); C66.1 Malignant neoplasm of right ureter; N30.21 Other chronic cystitis with hematuria; C67.0 Malignant neoplasm of trigone of bladder; N13.5 Crossing vessel and stricture of ureter without hydronephrosis; E11.9 Type 2 diabetes mellitus without complications; I25.10 Atherosclerotic heart disease of native coronary artery without angina pectoris; N40.1 Benign prostatic hyperplasia with lower urinary tract symptoms; R39.15 Urgency of urination; R35.0 Frequency of micturition; R35.1 Nocturia; F17.210 Nicotine dependence, cigarettes, uncomplicated; Z79.2 Long term (current) use of antibiotics; Z79.4 Long term (current) use of insulin; Z79.84 Long term (current) use of oral hypoglycemic drugs; Z79.899 Other long term (current) drug therapy; Z95.1 Presence of aortocoronary bypass graft
CPT/HCPCS: 00912; 36415; 51700; 74176; 74420; 85025; 88305; 88307; 88341; 88342; 94762; 96360; 96361; 96374; 96376; C1769; C2617; J0690; J1100; J1171; J1580; J1815; J1885; J2003; J2405; J2704; J3010; J3490; J7060; J7121; J9280; Q9967

== ENCOUNTER 2025-01-09 15:40 | Observation (INO) | payer OTHER ==
[~2025-01-09] VITALS: Ht 170.2 cm; Wt 71.1 kg
[~2025-01-09 15:40] MED LIST changes: +FLOMAX0.4 MG PO; -LACTATED RINGER'S 1,000 ML IV SCH; +MESALAMINE4 GM/60 ML PR; +METHOCARBAMOL750 MG PO; +NITROFURANTOIN100 M1 PO; +OXYCODONE HCL5 MG PO; +ROSUVASTATIN CA20 MG PO
[2025-01-09 16:16] VITALS: BP 149/74
[2025-01-09] MEDS ORDERED: HYDROmorphone HCL 1 MG/ML SYR IV PRN (16:45)
[2025-01-09] MEDS ORDERED: OXYCODONE/APAP 5/325 TAB PO PRN (16:45)
[2025-01-09] MEDS ORDERED: ondansetron HCL 4 MG/2 ML VIAL IV PRN (16:45)
[2025-01-09] MEDS ORDERED: diphenhydrAMINE HCL 25 MG CAP PO PRN (16:45)
[2025-01-09] MEDS ORDERED: LACTATED RINGER'S 1,000 ML IV SCH (16:45)
[2025-01-09 16:46] LABS: BASOPHILS 0.5 % (0.2-1.2); EOSINOPHILS 3.1 % (0.8-7.0); HEMATOCRIT 32.9 % (40.1-51.0); LYMPHOCYTES 28.1 % (21.8-53.1); MCH 29.2 PG (25.7-32.2); MCHC 33.4 g/dL (32.3-36.5); MCV 87.3 fL (79.0-92.2); MONOCYTES 11.7 % (5.3-12.2); NEUTROPHILS 56.3 % (34.0-67.9); PLATELET COUNT 304 K/uL (163-337); RBC 3.77 M/uL (4.63-6.08)
[2025-01-09] MEDS ORDERED: DOCUSATE SODIUM 100 MG CAP PO SCH (16:49)
[2025-01-09 16:56] LABS: ANION GAP 10.1 (7-21); BUN/CREATININE RATIO 12.64 (6.0-28.6); CALCIUM 8.9 mg/dL (8.5-10.1); CREATININE, SERUM 0.87 mg/dL (0.70-1.30); POTASSIUM 3.1 mmol/L (3.5-5.1)
--- NOTE | 2025-01-09 16:59 | NUR ---
MED REC COMPLETE
[2025-01-09] MEDS ORDERED: oxyBUTYnin chloride 5 MG TAB PO SCH (17:00)
[2025-01-09] MEDS ORDERED: HYOSCYAMINE SULFATE 0.375 MG TAB.ER.12H PO PRN (17:00)
[2025-01-09] MEDS ORDERED: GLUCAGON,HUMAN RECOMBINANT 1 MG/ML VIAL SUB-Q PRN (17:15)
[2025-01-09] MEDS ORDERED: POTASSIUM CHLORIDE 10 MEQ/100 ML BAG IV SCH (17:15)
[2025-01-09] MEDS ORDERED: DEXTROSE 5% 1,000 ML IV PRN (17:15)
[2025-01-09] MEDS ORDERED: DEXTROSE 50% 50 ML SYR IV PRN ×2 (17:15)
[2025-01-09] MEDS ORDERED: IBLOOD GLUCOSE TEST STRIP 1 EA TEST XX PRN (17:15)
--- NOTE | 2025-01-09 17:25 | NUR ---
pt to floor with . PT SPEAKS VERY LITTLE PASHTO AND USED INTERPRETTER PHONE AND TO SPEAK TO PT. STARTED IV. IVF. SENT LABS. ADMINISTERED PAIN MEDS FOR 10\10 PAIN. PT VISIBLY WINCING WITH ANY MOVEMENT. CHACON DRAINING WATERMELON JUICE COLORED URINE.
[2025-01-09 18:37] VITALS: BP 149/74
--- NOTE | 2025-01-09 18:44 | NUR ---
EMPTIED CHACON FOR 225 RED\PHIL COLORED URINE. PT RATES PAIN 0\10 AND IS RESTING WITH EYES CLOSED.
--- NOTE | 2025-01-09 19:10 | NUR ---
REPORT RECEIVED FROM CHRISSY VANG. pt RESTING IN THE BED. IV ASSESSED, WNL. BOARD UPDATED. pt DENIES ANY OTHER NEEDS AT THIS TIME. CALL LIGHT WITHIN REACH.
[2025-01-09 20:01] VITALS: BP 110/68
--- NOTE | 2025-01-09 20:15 | NUR ---
ASSESSMENT AND VITAL SIGNS DONE. SCHEDULED MEDS ADMINSITERED. pt DENIES ANY NEEDS AT THIS TIME. CALL LIGHT WITHIN REACH. CHACON CARE DONE. URINE WATERMELON JUICE COLOR. WATER REFRESHED. pt NPO AT MIDNIGHT.
[2025-01-09] MEDS ORDERED: IBLOOD GLUCOSE TEST STRIP 1 EA TEST XX SCH (21:00)
[2025-01-09] MEDS ORDERED: NITROFURANTOIN MONOHYD MACROCR 100 MG CAP PO SCH (21:00)
[2025-01-09] MEDS ORDERED: Insulin Regular, Human 100 UNIT/ML ML SUB-Q SCH (21:00)
[2025-01-10] VITALS (8 sets, daily range): BP systolic 123–155; BP diastolic 60–89
--- NOTE | 2025-01-10 00:44 | NUR ---
pt RESTING IN THE BED. URINE THE TUBE IS PINK AT THIS TIME. pt DENIES ANY NEEDS AT THIS TIME. CALL LIGHT WITHIN REACH.
--- NOTE | 2025-01-10 02:39 | NUR ---
pt C/O 02/16 PAIN. PRN PAIN MEDS ADMINISTERED. pt URINE PINK IN COLOR. pt CHACON FLUSHED WITH 20mL TO BE SURE THERE WERE NO CLOTS. NO CLOTS OBSERVED. pt DENIES ANY OTHER NEEDS AT THIS TIME. CALL LIGHT WITHIN REACH.
--- NOTE | 2025-01-10 04:00 | NUR ---
pt RESTING IN THE BED WITH EYES CLOSED. RR EVEN AND UNLABORED. CALL LIGHT WITHIN REACH. URINE IS PINK IN COLOR.
[2025-01-10] MEDS ORDERED: LACTATED RINGER'S 1,000 ML IV SCH (05:00)
--- NOTE | 2025-01-10 05:30 | NUR ---
PRE SURGERY WIPE DOWN DONE. VITAL SIGNS DONE. UP TO THE BR. pt DENIES ANY OTHER NEEDS AT THIS TIME. CALL LIGHT WITHIN REACH. pt BACK TO BED.
[2025-01-10] MEDS ORDERED: LIDOCAINE HCL 1% 5 ML SDV INJ ONE (07:00)
[2025-01-10] MEDS ORDERED: IBLOOD GLUCOSE TEST STRIP 1 EA TEST VI PRN ×2 (07:00→08:15)
[2025-01-10] MEDS ORDERED: CEFAZOLIN SODIUM 2 GM/20 ML SYR IV SCH (07:00)
[2025-01-10] MEDS ORDERED: propofoL 200 MG/20 ML VIAL ONE (07:23)
[2025-01-10] MEDS ORDERED: fentaNYL citrate 100 MCG/2 ML VIAL ONE (07:23)
[2025-01-10] MEDS ORDERED: ondansetron HCL 4 MG/2 ML VIAL ONE (07:23)
[2025-01-10] MEDS ORDERED: LIDOCAINE HCL 2% 5 ML SDV ONE (07:23)
[2025-01-10] MEDS ORDERED: DEXAMETHASONE SOD PHOS 4 MG/ML VIAL ONE (07:23)
[2025-01-10] MEDS ORDERED: dexmedeTOMIDine HCl 200 MCG/2 ML VIAL ONE (07:23)
--- NOTE | 2025-01-10 07:27 | NUR ---
REPORT RECEIVED FROM TAJ ATKINS, PT IN OR CURRENTLY.
[2025-01-10] MEDS ORDERED: NALOXONE HCL 0.4 MG SYR IV PRN (08:15)
[2025-01-10] MEDS ORDERED: fentaNYL citrate 50 MCG/ML SDV IV PRN (08:15)
[2025-01-10] MEDS ORDERED: ondansetron HCL 4 MG/2 ML VIAL IV PRN (08:15)
[2025-01-10] MEDS ORDERED: ACETAMINOPHEN 1,000 MG/100 ML VIAL ONE (08:17)
--- NOTE | 2025-01-10 09:02 | NUR ---
PATIENT NOT IN ROOM, IN SURGERY DEPT FOR PROCEDURE.
[2025-01-10] MEDS ORDERED: HYDROmorphone HCL 1 MG/ML SYR IV PRN (09:15)
--- NOTE | 2025-01-10 09:16 | NUR ---
01/10/25 0916 Silas Chong 0823: PT ARRIVED TO PACU VIA BED. REPORT TAKEN FROM FARHAT MANIPULATIVE THERAPY SPECIALIST. PT ON ROOM AIR ON ARRIVAL. PT HAD SMALL AMOUNT OF DRAINAGE FROM PENIS. 0826: ATTEMPTING TO GET SALES ORDER SPECIALIST ON THE LINE TO ASSIST WITH TRANSLATING. PT APPEARS TO BE IN SIGNIFICANT DISTRESS. 0830: SALES ORDER SPECIALIST ON THE LINE AT THIS TIME. PT REPORTING PAIN IN PENIS /10 AT THIS TIME. 0835: PT GIVEN 25MCG OF FENTANYL IV AT THIS TIME.
--- NOTE | 2025-01-10 09:34 | NUR ---
UR CLINICAL REVIEW: [facility] [place] REVIEW MEETS INPT FOR UROLOGIC DISEASE GRG. WILL DISCUSS WITH MD. HERN[facility]NDEZ [facility] OBS 01/09/25 @ 1556 ORDER MATCHES REG NO AUTH REQUIRED FOR OBS VISIT PER MODA PROTOCOL DISCHARGE TO HOME WHEN STABLE 01/11/25
--- NOTE | 2025-01-10 09:42 | NUR ---
VISITED DURING SPIRITUAL CARE ROUNDS. PT NOT AVAILABLE, IN ROOM DENIED IMMEDIATE NEEDS. NO OVERT SIGNS OF ANXIETY. COOLER WORKER PROVIDED SUPPORTIVE PRESENCE, HOSPITALITY, PRAYER. EXPRESSED GRATITUDE.
--- NOTE | 2025-01-10 09:55 | NUR ---
PT TO FLOOR FROM PACU. REPORT RECEIVED FROM TAJ GELLER. PT STATES IN ESTONIAN TO TAJ JACK THAT HIS PAIN IS A 4/10 AT THIS TIME. YIMI VANG REPORTED THAT PT URINATED IN PACU 200 CC LIGH PINK URINE, NO CLOTS. PT ON CPOX, O2 2L PER NC AT THIS TIME. AT BEDSIDE. CALL LIGHT WITHIN REACH. BED ALARM ON.
[2025-01-10] MEDS ORDERED: OXYCODONE HCL5 MG PO (10:10)
[2025-01-10] MEDS ORDERED: NITROFURANTOIN100 MG PO (10:11)
[2025-01-10] MEDS ORDERED: OXYBUTYNIN CHLO10 MG PO (10:12)
--- NOTE | 2025-01-10 10:35 | NUR ---
IPAD EXECUTIVE HOUSEKEEPER SERVICE UTILIZED (BALDOMERO) FOR POSTOP, POC, AND MEDICATION TEACHING. PT STATED UNDERSTANDING. IN ROOM. PT USING URINAL TO URINATE WITHOUT DIFFICULTY. PT URINATED IN PACU AND ALSO URINATED 150 CURRENTLY OF PHIL URINE. PT GIVEN PUDDING, CHEESE STICK, AND WATER. TOLERATING POS WELL. CALL LIGHT WITHIN REACH, PER ITERPRETER NO OTHER NEEDS OR QUESTIONS AT THIS TIME.
[2025-01-10] MEDS ORDERED: SEVOFLURANE 250 ML BTL INH ONE (11:13)
--- NOTE | 2025-01-10 11:56 | NUR ---
PT RESTING IN BED WITH AT BEDSIDE. PT DENIES PAIN AT THIS TIME. CALL LIGHT WITHIN REACH. PT URINATED 175 PHIL URINE IN URINAL.
--- NOTE | 2025-01-10 13:07 | NUR ---
IPAD MEASUREMENT SPECIALIST NIKOLAI USED TO TEACH PT ABOUT HIS MEDICATIONS AND ASK QUESTIONS REGARDING URINATING. PT STATES HE IS NOT HAVING ANY TROUBLE URINATING BUT THAT HE DOES HAVE SLIGHT BURNING SENSATION AFTER URINATING. PT HIS LUNCH AND IS TOLERATING WELL. PT DENIES PAIN AT THIS TIME, BUT WILL GIVE PAIN MEDICATION SO THAT PT IS COMFORTABLE FOR DISCHARGE. PT STATES UNDERSTANDING AND HAS NO OTHER REQUESTS AT THIS TIME, ALSO IN ROOM. CALL LIGHT WITHIN REACH AND BED ALARM ON.
--- NOTE | 2025-01-10 13:20 | NUR ---
DR TIRADO CALLED AND UPDATED REGARDING PT URINATING WITHOUT DIFFICULTY AND URINE PHIL COLOR WITH NO CLOTS OR BLOOD VISIBLE. DR TIRADO STATES TO PROCEED WITH DISCHARGE ORDERED.
--- NOTE | 2025-01-10 14:30 | NUR ---
DISCHARGE INSTRUCTIONS GIVEN WRITTEN, VERBAL (WITH IPAD POPPED CORN OVEN ATTENDANT BETSY [id number]), AND IN [place]OU[place]ORE[place]. PT INSTRUCTED TO AVOID HERBAL SUPPLEMENTS, AVOID STRAINING OR STRENUOUS PHYSICAL ACTIVITY, CALL DR TIRADO OR GO TO ER IF PT STARTS URINATING BLOOD, PASSING BLOOD CLOTS, OR CANNOT URINATE. PT STATED UNDERSTANDING. ALSO PRESENT DURING TEACHING. IV X 2 DC'D. CATHETERS INTACT, DRSG APPLIED. CALL LIGHT WITHIN REACH.
== END 2025-01-10 13:45 | disposition home or self-care (01) ==
LOC: MS 15:40
PROVIDERS: ADMIT Urology; ATTEND Urology
PROC: 0TBB8ZZ Excision of Bladder, Via Natural or Artificial Opening Endoscopic (ICD-10-PCS; principal; 2025-01-10 07:30)
DX: R31.0 Gross hematuria (principal); N32.89 Other specified disorders of bladder; E87.6 Hypokalemia; E11.9 Type 2 diabetes mellitus without complications; I25.10 Atherosclerotic heart disease of native coronary artery without angina pectoris; F17.210 Nicotine dependence, cigarettes, uncomplicated; K59.09 Other constipation; Z79.4 Long term (current) use of insulin
CPT/HCPCS: 00910; 36415; 80048; 84132; 85025; 96365; 96366; 96375; 96376; G0378; J0131; J0690; J1100; J1171; J1815; J2003; J2405; J2704; J3010; J3480; J7121

== ENCOUNTER 2025-02-02 11:21 | Emergency (ER) | payer OTHER ==
[~2025-02-02] VITALS: Ht 170.2 cm; Wt 71.1 kg
[~2025-02-02 11:21] MED LIST changes: +NITROFURANTOIN100 MG PO; +TRAZODONE HCL50 MG PO
--- OUTSIDE RECORDS SUMMARY | 2025-02-02 11:28 | XMS ---
PreManage Notification: NADIA SHIPLEY Security Pinsetter Mechanic Automatic Events No recent Security Events currently on file CRITERIA MET - 6 ED Visits in 6 Months - [facility] - 2 Visits in 30 Days - [facility] - 3 Facilities in 90 Days CARE PROVIDERS -, [facility] Dentist: Shredder Tender Peat [facility] PHONE: [phone] -Annamaria- Dentist: Shredder Tender Peat [facility] PHONE: [phone] CR[facility] Current PHONE: Unknown [facility]/Witt: [facility] ([facility]) PHONE: [phone] Kristofer has no Care Guidelines for this patient. Eb VISIT COUNT (12 MO.) [address] [address] [facility] TOTAL 12 NOTE: Visits indicate total known visits. ED/UCC VISIT TRACKING (12 MO.) 02/02/2025 11:22 [facility] [place] TYPE: Emergency COMPLAINT: - BOWL ISSUE 01/06/2025 21:34 [facility] [place] TYPE: Emergency COMPLAINT: - ABD PAIN DIAGNOSES: - Essential (primary) hypertension - Hematuria, unspecified - FPC (current) use of insulin - superintendent terminal (current) use of oral hypoglycemic drugs - Other mechanical complication of indwelling urethral catheter, initial encounter - Pure hypercholesterolemia, unspecified - Type 2 diabetes mellitus without complications - Unspecified abdominal pain 01/03/2025 22:21 [facility] TYPE: Emergency DIAGNOSES: - Generalized abdominal pain - Other chronic pain - Other specified diseases of anus and rectum - rectal pain - Urinary Retention 12/05/2024 11:05 [facility] TYPE: Emergency DIAGNOSES: - Other specified diseases of anus and rectum - Personal history of malignant neoplasm of bladder - Unspecified abdominal pain - Abdominal Pain - Constipation 11/26/2024 06:00 [facility] [place] TYPE: Emergency DIAGNOSES: - Noninfective gastroenteritis and colitis, unspecified - Other specified diseases of anus and rectum - RECTAL BLEEDING FEVER 11/21/2024 10:18 [facility] [place] TYPE: Emergency COMPLAINT: - RECTAL PAIN DIAGNOSES: - superintendent terminal (current) use of insulin - FPC (current) use of oral hypoglycemic drugs - Malignant neoplasm of bladder, unspecified - Other intermediate teacher (current) drug therapy - Presence of aortocoronary bypass graft - Presence of urogenital implants - Radiation proctitis - Type 2 diabetes mellitus without complications - Unspecified abdominal pain 11/12/2024 09:20 [facility] TYPE: Emergency DIAGNOSES: - Other specified diseases of anus and rectum - Retention of urine, unspecified - Urinary tract infection, site not specified - Abdominal Pain - Back Pain 11/05/2024 06:02 [facility] TYPE: Emergency DIAGNOSES: - Constipation, unspecified - Generalized abdominal pain - Other specified noninfective gastroenteritis and colitis - Personal history of urinary (tract) infections - Retention of urine, unspecified - Unspecified abdominal pain - Constipation - Urinary Complaint 11/02/2024 13:40 [facility] TYPE: Emergency DIAGNOSES: - Urinary Complaint 10/26/2024 19:46 [facility] TYPE: Emergency DIAGNOSES: - Acute cystitis with hematuria - Adverse effect of other opioids, initial encounter - Drug induced constipation - Elevated blood-pressure reading, without diagnosis of hypertension - Opioid abuse, uncomplicated - Other specified disorders of bladder - Constipation 10/23/2024 09:09 [facility] TYPE: Emergency COMPLAINT: - ABDOMINAL PAIN DIAGNOSES: - Constipation, unspecified - superintendent terminal (current) use of oral hypoglycemic drugs - Lower abdominal pain, unspecified - Other intermediate teacher (current) drug therapy - Other specified diseases of anus and rectum - Other specified disorders of bladder - Type 2 diabetes mellitus without complications 07/09/2024 10:16 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 TYPE: Internal Medicine DIAGNOSES: - Encounter for preprocedural cardiovascular examination - Other specified diseases of anus and rectum - Other specified disorders of bladder - Personal history of malignant neoplasm of bladder - Presence of aortocoronary bypass graft - Rectal polyp - Unspecified abdominal pain 07/09/2024 10:16 [facility] TYPE: Internal Medicine DIAGNOSES: - Hemorrhage of anus and rectum - Non-ST elevation (NSTEMI) myocardial infarction - Presence of aortocoronary bypass graft [email or web address]
[2025-02-02 12:51] LABS: BASOPHILS 0.5 % (0.2-1.2); EOSINOPHILS 2.2 % (0.8-7.0); HEMATOCRIT 37.8 % (40.1-51.0); HEMOGLOBIN 12.7 g/dL (13.7-17.5); LYMPHOCYTES 23.3 % (21.8-53.1); MCH 29.1 PG (25.7-32.2); MCHC 33.6 g/dL (32.3-36.5); MCV 86.7 fL (79.0-92.2); MONOCYTES 9.1 % (5.3-12.2); NEUTROPHILS 64.8 % (34.0-67.9); PLATELET COUNT 267 K/uL (163-337); RBC 4.36 M/uL (4.63-6.08)
[2025-02-02 13:07] LABS: ALBUMIN 3.4 g/dL (3.4-5.0); ALBUMIN/GLOBULIN RATIO 0.97 (1.1-2.4); ANION GAP 14.1 (7-21); BILIRUBIN, TOTAL 0.3 mg/dL (0.2-1.0); BUN/CREATININE RATIO 12.9 (6.0-28.6); CALCIUM 8.7 mg/dL (8.5-10.1); CREATININE, SERUM 0.93 mg/dL (0.70-1.30); POTASSIUM 3.1 mmol/L (3.5-5.1); PROTEIN, TOTAL 6.9 g/dL (6.4-8.2)
[2025-02-02] MEDS ORDERED: HYDROCORTISONE25 MG PR (15:58)
[2025-02-02] MEDS ORDERED: MIRALAX119 GM PO (15:58)
[2025-02-02 16:34] VITALS: BP 154/99
== END 2025-02-02 16:34 | disposition home or self-care (01) ==
LOC: ED 11:21
PROVIDERS: Emergency Medicine
DX: K62.89 Other specified diseases of anus and rectum (principal); I10 Essential (primary) hypertension; E78.00 Pure hypercholesterolemia, unspecified; E11.9 Type 2 diabetes mellitus without complications; Z79.899 Other long term (current) drug therapy; Z79.84 Long term (current) use of oral hypoglycemic drugs; Z79.4 Long term (current) use of insulin
CPT/HCPCS: 36415; 74176; 80053; 83690; 85025; 99284-25